=== PATIENT | male | born 1995 | race Caucasian/White ===

== ENCOUNTER 2022-08-03 23:40 | Emergency (ER) | payer MEDICAID ==
[~2022-08-03] VITALS: Ht 172.7 cm; Wt 54.4 kg
[2022-08-04] MEDS ORDERED: HYDROCODONE/APAP 5/325MG TABLET ONE (00:08)
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
[2022-08-04] MEDS ORDERED: HYDROCODONE/APAP 5/325MG TABLET PO ONE (00:30)
--- NOTE | 2022-08-04 02:36 | NUR ---
Patient does not wish to proceed with medical care recommended by Dr. Peterson. Patient given information related to possible complications, up to and including , which could occur as a result of leaving the hospital at this time. Patient verbalizes understanding of risks involved due to leaving against medical advice. Patient has signed AMA form.
[2022-08-04 02:37] VITALS: BP 131/80
== END 2022-08-04 02:38 | disposition left against medical advice (07) ==
LOC: ER 23:48
DX: R07.89 Other chest pain (principal); Z60.2 Problems related to living alone; V49.59XA Passenger injured in collision with other motor vehicles in traffic accident, initial encounter; Y93.89 Activity, other specified; Y92.413 State road as the place of occurrence of the external cause; Y99.8 Other external cause status
CPT/HCPCS: 71045-TC